=== PATIENT | male | born 1980 | race Hispanic/Latino ===

== ENCOUNTER 2023-03-04 09:45 | Emergency (ER) | payer BC ==
[~2023-03-04] VITALS: Ht 170.2 cm; Wt 88.5 kg
[2023-03-04] MEDS ORDERED: KETOROLAC 30MG VIAL (30MG/ML) IVP ONE (11:30)
[2023-03-04] MEDS ORDERED: PANTOPRAZOLE 40 MG/VIAL IVP ONE (11:30)
[2023-03-04] MEDS ORDERED: MORPHINE 2 MG SYG IVP ONE (11:30)
[2023-03-04] MEDS ORDERED: 0.9%NACL 1000ML 1,000 ML IV ONE (11:30)
[2023-03-04 11:31] LABS: BASOPHILS # (AUTO) 0.03 K/uL (0.00-0.20); BASOPHILS % (AUTO) 0.4 % (0.0-5.0); EOSINOPHILS % (AUTO) 1.2 % (0.0-8.0); HEMATOCRIT 43.3 % (42-54); IMMATURE GRANULOCYTE ABSOLUTE 0.03 K/uL (0-1); LYMPHOCYTES # (AUTO) 1.7 K/uL (1.0-4.8); LYMPHOCYTES % (AUTO) 20.2 % (21.0-51.0); MEAN CORPUSCULAR HEMOGLOBIN 31.4 pg (27.0-33.0); MEAN CORPUSCULAR HGB CONC 34.9 g/dL (32.0-36.0); MONOCYTES # (AUTO) 0.7 K/uL (0.1-1.0); MONOCYTES % (AUTO) 7.6 % (3.0-13.0); NEUTROPHILS % (AUTO) 70.2 % (40.0-77.0); PLATELET COUNT (AUTO) 263 K/uL (130-400); RED BLOOD CELL COUNT(AUTO) 4.81 MIL/uL (4.50-6.20); RED CELL DISTRIBUTION WIDTH 11.6 % (11.0-15.5); WHITE BLOOD COUNT (AUTO) 8.5 K/uL (4.8-10.8)
[2023-03-04 11:46] LABS: POTASSIUM 3.7 mmol/L (3.5-5.1)
[2023-03-04 11:50] LABS: ALBUMIN 3.7 g/dL (3.5-5.0); BILIRUBIN,TOTAL 0.7 mg/dL (0.2-1.0); TOTAL PROTEIN, SERUM 7.5 g/dL (6.0-8.3)
[2023-03-04] MEDS ORDERED: IOHEXOL 350 MG/ML 100ML INFUS..BTL IV ONE (14:37)
[2023-03-04 14:55] LABS: APPEARANCE,URINE CLEAR (CLEAR); BILIRUBIN,URINE NEGATIVE (NEGATIVE); COLOR,URINE YELLOW (YELLOW); GLUCOSE, URINE (UA) NEGATIVE (NEGATIVE); KETONES,URINE 10 mg/dL (NEGATIVE); LEUKOCYTE ESTERASE ,URINE NEGATIVE Leu/uL (NEGATIVE); NITRATE,URINE NEGATIVE (NEGATIVE); OCCULT BLOOD,URINE NEGATIVE (NEGATIVE); PROTEIN,URINE 10 mg/dL (NEGATIVE); UROBILINOGEN,URINE 0.2 mg/dL (0.2-1.0)
[2023-03-04 15:02] LABS: ADD UA MICROSCOPIC YES
[2023-03-04 15:04] LABS: MUCUS,URINE RARE LPF (None Seen); WBC,URINE 0-1 /HPF (0-1)
[2023-03-04] MEDS ORDERED: IOHEXOL-350 75 ML VIAL IV ONE (15:08)
[2023-03-04] MEDS ORDERED: DICYCLOMINE 20MG (10MG/ML) AMP IM STA (16:15)
[2023-03-04] MEDS ORDERED: ACET-2079 PO (16:24)
[2023-03-04] MEDS ORDERED: DICY20TA2 PO (16:24)
[2023-03-04] MEDS ORDERED: AMOX1TAB16 PO (16:24)
[2023-03-04] MEDS ORDERED: ONDA4SOL PO (16:24)
[2023-03-04] MEDS ORDERED: ZOSYN 3.375GM +NS 50ML IVPB ONE (16:30)
[2023-03-04] MEDS ORDERED: KETOROLAC 30MG VIAL (30MG/ML) ONE (16:51)
[2023-03-04] MEDS ORDERED: MORPHINE 2 MG SYG ONE (16:51)
[2023-03-04] MEDS ORDERED: PANTOPRAZOLE 40 MG/VIAL ONE (16:52)
[2023-03-04 17:00] VITALS: BP 122/65; PULSE 63; RESP 16; O2SAT 100
== END 2023-03-04 17:58 | disposition home or self-care (01) ==
LOC: EDH 09:45
DX: K52.9 Noninfective gastroenteritis and colitis, unspecified (principal); K21.9 Gastro-esophageal reflux disease without esophagitis
CPT/HCPCS: 99284; 74177; 96365; 96375; 80053; 83690; 85025; 81001; 36415; 96372; J2270; J1885; J2543; C9113; J0500; Q9967 ×2